=== PATIENT | male | born 1995 | race Caucasian/White ===

== ENCOUNTER 2021-05-25 04:21 | Inpatient (IN) | payer SELFPAY ==
[2021-05-25 04:23] VITALS: BP 151/72; PULSE 120; RESP 18; TEMP 36.6; O2SAT 96; BMI 25.8
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
[2021-05-25] MEDS: LORazepam 2 mg/mL INJ 1 mL 4 MG IM (04:43)
[2021-05-25] MEDS: haloperidol inj 5 mg/mL INJ 1 mL IM (04:43)
[2021-05-25 05:20] LABS: Basophils % 0.2 %; Eosinophils % 0.2 %; Hematocrit 43.7 % (42.0-52.0); Hemoglobin 15.2 g/dL (11.7-16.6); Lymphocytes # 1.6 10^3/uL (0.8-4.8); Lymphocytes % 14.1 %; Mean Corpuscular HGB Conc 34.8 g/dL (30.0-36.0); Mean Corpuscular Hemoglobin 30.9 pg (28.0-34.0); Mean Corpuscular Volume 88.8 fl (80-94); Mean Platelet Volume 9.4 fL (7.4-10.4); Monocytes # 0.6 10^3/uL (0.2-0.9); Neutrophils # 9.19 10^3/uL (1.8-7.7); Neutrophils % 80.2 %; Nucleated Red Blood Cells % 0 %; Platelet Count 363 10^3/cmm (130-400); Red Blood Count 4.92 10^6/uL (4.1-5.3); Red Cell Distribution Width 11.9 % (12.1-15.1); White Blood Count 11.5 10^3/uL (4.0-10.0)
[2021-05-25 05:34] LABS: Alanine Aminotransferase 16 U/L (0-41); Albumin Level 4.6 g/dL (3.5-5.2); Alcohol Level 121 mg/dL (0-10); Alkaline Phosphatase 81 IU/L (40-130); Anion Gap 18.6 (5-19); Aspartate Amino Transferase 16 U/L (0-40); Blood Urea Nitrogen 8 mg/dL (6-20); Calcium 8.9 mg/dL (8.5-10.5); Carbon Dioxide 20 mmol/L (22-29); Chloride 107 mmol/L (98-107); Globulin 2.4 g/dL (1.3-4.6); Glomerular Filtration Rate 164.2 mL/min (90-130); Glucose 103 mg/dL (65-115); Osmolality Calculated 293 mOsm/kg (285-295); Potassium 3.6 mmol/L (3.5-5.1); Sodium 142 mmol/L (136-145); Total Bilirubin 0.2 mg/dL (0.15-1.2)
[2021-05-25 05:44] LABS: Acetaminophen < 5.0 ug/mL (10-30); Salicylate < 0.3 mg/dL (3-10)
[2021-05-25 06:48] VITALS: BP 142/88; PULSE 96; RESP 18; O2SAT 97
[2021-05-25 07:17] VITALS: BP 121/67; PULSE 67; RESP 18; TEMP 36.7; O2SAT 95
[2021-05-25 14:00] VITALS: RESP 16; TEMP 36.9
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
[2021-05-25 22:00] VITALS: BP 136/62; PULSE 84; RESP 17; TEMP 36.9; O2SAT 99
[2021-05-26 06:00] VITALS: BP 120/65; PULSE 74; RESP 16; TEMP 36.4; O2SAT 97
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
[2021-05-26] MEDS: ARIPiprazole 10 mg Tablet PO (11:04)
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
[2021-05-26 14:00] VITALS: BP 128/53; PULSE 64; RESP 18; TEMP 37.3; O2SAT 98
[2021-05-26] MEDS: nicotine 2 mg Gum BUCCAL (17:31)
[2021-05-26 19:56] VITALS: BP 141/84; PULSE 69; RESP 18; TEMP 36.5; O2SAT 98
[2021-05-26] MEDS: trazodone 50 mg Tablet PO (21:23)
[2021-05-26] MEDS: hyDROXYzine 25 mg Capsule 50 MG PO (21:23)
--- NOTE | 2021-05-26 21:25 | PC.NURSE ---
pt requested anxiety med with HS med, Vistaril 50mg po given
--- NOTE | 2021-05-26 23:00 | PC.NURSE ---
pt resting quietly with both eyes closed
[2021-05-27 06:00] VITALS: BP 141/84; PULSE 69; RESP 18; TEMP 36.5; O2SAT 98; BMI 25.8
[2021-05-27] MEDS: ARIPiprazole 10 mg Tablet PO (09:32)
[2021-05-27 14:00] VITALS: BP 140/79; PULSE 81; RESP 14; TEMP 36.4; O2SAT 96
--- NOTE | 2021-05-27 15:03 | PM.NPN ---
Subjective NPU Subjective: Interval history: The patient says that he is still somewhat depressed but making it. He denies SI/HI but is not sure he would be able to keep himself safe outside the hospital. He says he slept better last night. No medication side effects. No AV hallucinations. He is not sure where he will live following discharge. He showed me the bite cheko that he says was caused by his . Mental Status Exam MSE Comments: I met with the patient in his room with the door open, and still somewhat sloppily groomed. He continues to be in emotional distress, and feeling down on himself. Eye contact is fair. He did not have psychomotor agitation nor retardation. Speech is at an appropriate volume and speed. Alert, oriented to person, place, and situation. Attention and concentration are impaired by his emotional distress. Memory is returning. Mood is depressed and anxious. Affect is self-deprecatory. Thought process is clearer and more logical. Thought content: Denies auditory and visual hallucinations. No delusions or paranoia are noted. He denies suicidal ideation. Insight and judgment appear to be impaired by his depression. Impulse control is impaired as well. Vitals/I&O/Wt Last Vital Signs Temp 97.7 F 05/27/21 06:00 Pulse 69 05/27/21 06:00 Resp 18 05/27/21 06:00 BP 141/84 05/27/21 06:00 Pulse Ox 98 05/27/21 06:00 Weight last 48 hrs Weight 79.379 kg Data NPU : 05/25/21 05:00 05/25/21 05:00 A&P Assessment and plan (1) Anxiety disorder, unspecified: Status: Acute (2) Cannabis abuse: Status: Acute (3) Dissociative disorder: Status: Acute (4) Major depressive disorder, recurrent severe without psychotic features: Status: Acute (5) Suicidal ideation: Status: Acute Additional A&P Information Farshad Love is a 26 year old male with a long history of psychiatric treatment for bipolar disorder, depression and suicide thoughts and behaviors. RECOMMENDATION AND PLAN: 1. Continue Abilify 10 mg daily for mood stabilization. Even though he is depressed, it is not appropriate to start an antidepressant because of his history of bipolar disorder. Give trazodone for sleep. 2. Continue every 15 minute checks for safety. 3. Encourage individual, group and milieu therapies. 4. Encourage sober living treatment after discharge at the highest level of care to which he is willing to commit. Involuntary Hold Information 96 Hour Hold: 96 Hour Involuntary Admission: Yes Attestations NPU Medical Necessity Statement*: Psychiatric hospitalization is medically necessary to prevent access to lethal means, to reevaluate medication, and to coordinate a safe discharge. Likely length of stay is 2 to 4 days. Coding Level of Care Code Acute Manager Environmental for [facility] Manjit Diagnoses Anxiety disorder, unspecified F41.9 Cannabis abuse F12.10 Dissociative disorder F44.9 Major depressive disorder, recurrent severe without psychotic features F33.2 Suicidal ideation R45.856
[2021-05-27] MEDS: hyDROXYzine 25 mg Capsule 50 MG PO (16:42)
[2021-05-27] MEDS: nicotine 2 mg Gum BUCCAL (16:42)
--- NOTE | 2021-05-27 16:55 | PC.NURSE ---
Administered vistaril 50mg PO for patient C/O increasing anxiety. Will monitor for medication effectiveness
[2021-05-27] MEDS: trazodone 50 mg Tablet PO (20:41)
[2021-05-27 21:24] VITALS: BP 130/82; PULSE 80; RESP 15; TEMP 37; O2SAT 98
[2021-05-27 23:11] LABS: Amphetamines Screen Urine Negative (Negative); Barbiturates Screen Urine Negative (Negative); Benzodiazepines Screen Urine Positive (Negative); Cocaine Screen Urine Negative (Negative); Opiate Screen Urine Negative (Negative); PCP Screen Urine Negative (Negative); THC Screen Urine Positive (Negative)
[2021-05-28 06:00] VITALS: BP 113/63; PULSE 84; RESP 15; TEMP 37.1; O2SAT 97
[2021-05-28] MEDS: ARIPiprazole 10 mg Tablet PO (09:07)
[2021-05-28] MEDS: nicotine 21 mg Patch 1 PATCH TRANSDERMA (11:34)
[2021-05-28] MEDS: OLANZapine 5 mg ODT PO (13:25)
[2021-05-28 14:00] VITALS: BP 145/79; PULSE 107; RESP 18; TEMP 36.2; O2SAT 98
--- NOTE | 2021-05-28 15:04 | PM.NPN ---
Subjective NPU Subjective: Interval history: The patient appeared somber when I met with him in his room. He reports feeling physically and mentally better today than he has since admission. He says he is worried about what he will do after discharge. He mentions housing, transportation, employment, and custody of his children as problems that he is facing once he is discharged. He reports understanding what led to his admission and his responsibility in preventing that from happening again. He reports that the medications have helped with his thinking and understands his need to continue taking them as prescribed. He is focused on discharging as quickly as possible. <Lupillo Barrera [facility] ST[facility] - Last Filed: 05/28/21 15:32> Interval history: Agree with above. Patient is feeling more positive about himself. He wants to focus on himself. He feels the Vistaril makes him a little shaky. <Mark Mullen MD - Last Filed: 05/29/21 06:16> Mental Status Exam MSE Comments: I met with the patient in his room with the door open, and he was dressed in hospital scrubs and somewhat sloppily groomed. He was somber, and it is apparent that he is in emotional distress, feeling down on himself. Eye contact is fair. He did not have psychomotor agitation nor retardation. Speech is appropriate volume and speed. Alert, oriented to person, place, and situation. Attention and concentration are impaired by his emotional distress. Memory is returning. Mood is depressed and anxious. Affect is self-deprecatory. Thought process is perseverative about being mad at himself for getting here, and needing to get back home as soon as possible. Thought content: Denies auditory and visual hallucinations. No delusions or paranoia are noted. He denies suicidal ideation. Insight and judgment appear to be impaired by his depression. Impulse control is impaired as well. <Lupillo Barrera [facility] ST[facility] - Last Filed: 05/28/21 15:32> Agree with above. <Mark Mullen MD - Last Filed: 05/29/21 06:16> Vitals/I&O/Wt Last Vital Signs Temp 97.1 F L 05/28/21 14:00 Pulse 107 H 05/28/21 14:00 Resp 18 05/28/21 14:00 BP 145/79 09/06/21 14:00 Pulse Ox 98 05/28/21 14:00 <Lupillo Barrera [facility] STDNT - Last Filed: 05/28/21 15:32> Weight last 48 hrs Weight 79.379 kg <Lupillo Barrera [facility] STDNT - Last Filed: 05/28/21 15:32> Data NPU : 05/25/21 05:00 05/25/21 05:00 <Lupillo Barrera MED STDNT - Last Filed: 05/28/21 15:32> A&P Assessment and plan (1) Anxiety disorder, unspecified: Status: Acute <Lupillo Barrera MED STDNT - Last Filed: 05/28/21 15:32> (2) Cannabis abuse: Status: Acute <Lupillo Barrera [facility] STDNT - Last Filed: 05/28/21 15:32> (3) Dissociative disorder: Status: Acute <Lupillo Barrera MED STDNT - Last Filed: 05/28/21 15:32> (4) Major depressive disorder, recurrent severe without psychotic features: Status: Acute <Lupillo Barrera [facility] STD[facility] - Last Filed: 05/28/21 15:32> (5) Suicidal ideation: Status: Acute <Lupillo Barrera [facility] STD[facility] - Last Filed: 05/28/21 15:32> Additional A&P Information RECOMMENDATION AND PLAN: 1. Continue Abilify 10 mg daily for mood stabilization. Even though he is depressed, it is not appropriate to start an antidepressant because of his history of bipolar disorder. Give trazodone for sleep. 2. Continue every 15 minute checks for safety. 3. Encourage individual, group and milieu therapies. 4. Encourage sober living treatment after discharge at the highest level of care to which he is willing to commit. <Lupilloroc Padronbritton MED STDNT - Last Filed: 05/28/21 15:32> Farshad Love is a 26 year old male with a long history of psychiatric treatment for bipolar disorder, depression and suicide thoughts and behaviors. Agree with above. <Mark Mullen MD - Last Filed: 05/29/21 06:16> Involuntary Hold Information 96 Hour Hold: 96 Hour Involuntary Admission: Yes <Lupillo [place], MED STDNT - Last Filed: 05/28/21 15:32> Attestations NPU Medical Necessity Statement*: see attending note <Lupillo Barrera MED STDNT - Last Filed: 05/28/21 15:32> Psychiatric hospitalization is medically necessary to prevent access to lethal means, to reevaluate medication, and to coordinate a safe discharge. Likely length of stay is 1 to 3 days. <Mark Mullen MD - Last Filed: 05/29/21 06:16> Coding Level of Care Code Acute [facility] for [facility]g Fwd Diagnoses Anxiety disorder, unspecified F41.9 Cannabis abuse F12.10 Dissociative disorder F44.9 Major depressive disorder, recurrent severe without psychotic features F33.2 Suicidal ideation R45.859
--- NOTE | 2021-05-28 16:47 | PM.NPN ---
Vitals/I&O/Wt Last Vital Signs Temp 97.1 F L 05/28/21 14:00 Pulse 107 H 05/28/21 14:00 Resp 18 05/28/21 14:00 BP 145/79 05/28/21 14:00 Pulse Ox 98 05/28/21 14:00 Weight last 48 hrs Weight 79.379 kg Data NPU : 05/25/21 05:00 05/25/21 05:00 Involuntary Hold Information 96 Hour Hold: 96 Hour Involuntary Admission: Yes Coding Level of Care Code Acute Acute Dialysis Registered Nurse for Anika Saravia
[2021-05-28] MEDS: hyDROXYzine 25 mg Capsule 50 MG PO ×2 (17:05→21:30)
[2021-05-28 21:00] VITALS: BP 135/92; PULSE 93; RESP 20; TEMP 37.1; O2SAT 96
[2021-05-28] MEDS: trazodone 50 mg Tablet PO (21:31)
[2021-05-29 06:00] VITALS: BP 140/91; PULSE 73; RESP 18; TEMP 36.5; O2SAT 97
[2021-05-29] MEDS: hyDROXYzine 25 mg Capsule 50 MG PO (09:50)
[2021-05-29] MEDS: ARIPiprazole 10 mg Tablet PO (09:50)
[2021-05-29 12:05] VITALS: BP 140/91; PULSE 73; RESP 18; TEMP 36.5; O2SAT 97
--- NOTE | 2021-05-29 16:46 | P.DS_ITS ---
Diagnoses at Discharge Discharge Diagnosis (1) Anxiety disorder, unspecified: Status: Acute (2) Cannabis abuse: Status: Acute (3) Dissociative disorder: Status: Acute (4) Major depressive disorder, recurrent severe without psychotic features: Status: Resolved (5) Suicidal ideation: Status: Resolved Reason for Visit Reason for Visit: SI/ LACERATIONS Brief History: Farshad Love is a 26 year old male with a long history of psychiatric treatment for bipolar disorder, depression and suicide thoughts and behaviors who was brought by police from 1[place]/2 hours away due to suicidal ideation. ED note states: 26-year-old male who is here with police after a suicide attempt. He was arguing with his and became extremely agitated and got a knife and tried to cut his wrist. He does have multiple superficial lacerations to his left wrist. He also then got in a car and stated he was going to wreck it trying to kill himself. Patient has been drinking tonight. He is very belligerent here and very aggressive screaming and yelling stating that he just wants to . Associated symptoms: Reports depression and suicidal ideation. The patient reports depression and extreme hopelessness. He says he tried to save his from cutting herself in the chest and then blacked out, regaining awareness in the police car on the way to this hospital. He reports having been recently quite depressed because of significant stressors in his life. He has not been able to hold a job. His boys, who are 2 and 3 years old, were removed from his custody a little more than a year ago. He says he has not been able to handle society. He denies recent auditory or visual hallucinations. He reports a history of bipolar disorder and ADHD and says, I have been on meds my whole life. He took Adderall and Ritalin when younger. He has taken Seroquel to stabilize his mood, but says it makes him feel bad. He has taken Abilify which has been helpful in the past. He says he has been hospitalized multiple times both as a minor and as an adult, usually for suicidal ideation or behavior. He says he has tried cutting himself to kill himself and has taken multiple overdoses. When he was 18 he says he took 20,000 mg of Seroquel. He has not been in treatment recently, but went to an intake in the past week or 2, and is supposed to start treatment and October at a place he thinks is called [facility]. The patient says he used to drink heavily, up to half a gallon a day. He says he smokes about $100 of marijuana per week. He denies other drug use. He says he smokes 1 or 1-1/2 packs of cigarettes per day. Psychiatric history: As above. Substance use history: As above. Family history: Patient says he has 3 paternal uncles who all have bipolar disorder. Otherwise he denies mental health or addiction issues on either side of the family and denies suicide attempts or completions in the family. Psychosocial history: The patient says he was born in [facility] but then attended high school in [place], [place]. He says he dropped out in the 11th grade when his mother left him stranded and he had to live in the streets. He has been about a year. He says his stepfather and his stepfather's took his children at the beginning of 2019. Legal history: No legal difficulties. Medical history: Denies any significant medical history. Hospital Course Hospital Course The patient was admitted to the neuropsychiatric unit for definitive treatment of these issues. On the unit he slowly acclimated to the individual, group and milieu therapies. There were some mild psychotic symptoms present initially which resolved with the medication being restarted. He was receptive to treatment team recommendations and showed modest improvement and was able to contract for safety prior to discharge. During the hospitalization, patient had routine laboratory studies which were within normal limits except for few outliers. Additionally there was a general medical evaluation which was also within normal limits and revealed no new acute processes. Discharge Summary: At the time of discharge, psychosis and lethality were denied. Mood and anxiety were well managed. Patient endorsed a plan to avoid all drugs of abuse and follow-up with the aftercare recommendations of the treatment team. Patient was evaluated and deemed to be absent credible lethality, and had achieved the maximum benefit from an inpatient hospitalization, so was discharged. Involuntary Hold Information 96 Hour Hold: 96 Hour Involuntary Admission: Yes Mental Status Exam MSE Comments: I met with the patient in his room with the door open, and he was dressed in hospital scrubs and somewhat sloppily groomed. Cooperative. Eye contact is fair. He did not have psychomotor agitation nor retardation. Speech is appropriate volume and speed. Alert, oriented to person, place, and situation. Attention and concentration are improved. Memory is returning. Mood is improved. Affect is brighter. Thought process is more organized and appropriate. Thought content: Denies auditory and visual hallucinations. No delusions or paranoia are noted. He denies suicidal ideation. Insight and judgment are improved. Impulse control is improved as well. Discharge Data Vitals: Last Vital Signs Temp 97.7 F 05/29/21 12:05 Pulse 73 05/29/21 12:05 Resp 18 05/29/21 12:05 BP 140/91 05/29/21 12:05 Pulse Ox 97 05/29/21 12:05 Discharge Plan Discharge Patient Disposition: Home Condition: Stable Prescriptions: New aripiprazole 10 mg Tablet 10 mg PO DAILY 30 Days Qty: 30 RF: 0 trazodone 50 mg Tablet 50 mg PO BEDTIME 30 Days Qty: 60 RF: 0 Discharge Orders: Discharge Order (Routine); Ordered 05/29/21 Ordered By: Mark Mullen Referrals: [facility] [Other] - 7-10 days (Call to schedule an appointment for an initial assessment. ) Discharge Diet: Usual diet Discharge Activity: Resume usual activity Patient Instructions: Opioid Safety Discharge Attestations NPU Time Spent in Discharge Care*: less than 30 min Specific Discharge Activities: Specific discharge activities: educating patient, discussing with renal case manager/social workers/dc planners, do cumenting/other paperwork and evaluating patient/reviewing data Status at Discharge: Cognitive status at discharge: cognitively intact , Behavioral status at discharge: cooperative , Functional status at discharge: independent ambulation Overall status at discharge: patient is back to baseline Coding Level of Care Code Acute [facility] FW DC note Diagnoses Anxiety disorder, unspecified F41.9 Cannabis abuse F12.10 Dissociative disorder F44.9 Major depressive disorder, recurrent severe without psychotic features F33.2 Suicidal ideation R45.851
== END 2021-05-29 14:32 | disposition home or self-care (01) | DRG 885 ==
LOC: ER 04:52 → NP 06:19
PROVIDERS: Admitting Provider Psychiatry & Neurology Child & Adolescent Psychiatry; Emergency Provider Emergency Medicine; Visit Provider Psychiatry & Neurology Child & Adolescent Psychiatry
DX: F33.2 Major depressive disorder, recurrent severe without psychotic features (principal); R45.851 Suicidal ideations; F41.9 Anxiety disorder, unspecified; F44.9 Dissociative and conversion disorder, unspecified; F17.210 Nicotine dependence, cigarettes, uncomplicated; F12.10 Cannabis abuse, uncomplicated; Z63.8 Other specified problems related to primary support group; Z91.5 Personal history of self-harm; Z81.8 Family history of other mental and behavioral disorders; Z59.8 Other problems related to housing and economic circumstances
CPT/HCPCS: 80053; 80306; 80307; 85025; 96372; 99285; J1630; J2060